=== PATIENT | male | born 1955 | race Caucasian/White ===

== ENCOUNTER → 2020-09-05 | Outpatient (CLI) | payer OTHER ==
[2020-09-05 18:24] LABS: CALCIUM LEVEL 8.7 MG/DL (8.8-10.2); CREATININE FOR GFR 1.32 MG/DL (0.70-1.30); GLOMERULAR FILTRATION RATE 58.3 (>49); TROPONIN I 0.09 NG/ML (< 0.10)
== END ==
LOC: M PLALAB 15:49
PROVIDERS: ATTEND Physician Assistant
DX: I50.32 Chronic diastolic (congestive) heart failure (principal); R07.9 Chest pain, unspecified

== ENCOUNTER 2021-01-21 13:56 | Emergency (ER) | payer OTHER ==
[~2021-01-21] VITALS: Ht 165.1 cm; Wt 82.2 kg
[2021-01-21] MEDS ORDERED: TORS10TA3 (14:01)
[2021-01-21] MEDS ORDERED: WARF4TAB51 (14:01)
[2021-01-21 14:11] VITALS: BP 136/82
[2021-01-21 14:40] LABS: BASO # 0.1 10^3/uL (0.0-0.2); BASO % 0.6 % (0.0-1.0); EOS # 0.3 10^3/uL (0.0-0.5); HEMATOCRIT 53.3 % (42.0-52.0); HEMOGLOBIN 17.4 g/dl (13.5-17.5); LYMPH # 1.3 10^3/uL (1.5-5.0); LYMPH % 13.4 % (24.0-44.0); MEAN CORPUSCULAR HEMOGLOBIN 28.2 pg (27.0-33.0); MEAN CORPUSCULAR HGB CONC 32.6 g/dl (32.0-36.5); MEAN CORPUSCULAR VOLUME 86.2 fl (80.0-96.0); MONO # 0.9 10^3/uL (0.0-0.8); MONO % 9.7 % (2.0-8.0); NEUTROPHILS % 72.9 % (36.0-66.0); PLATELET COUNT, AUTOMATED 165 10^3/uL (150-450); RED BLOOD COUNT 6.18 10^6/uL (4.30-6.10); WHITE BLOOD COUNT 9.7 10^3/uL (4.0-10.0)
[2021-01-21 14:59] LABS: BLOOD UREA NITROGEN 26 MG/DL (7-18); CALCIUM LEVEL 8.7 MG/DL (8.8-10.2); CARBON DIOXIDE LEVEL 29 MEQ/L (21-32); CHLORIDE LEVEL 104 MEQ/L (98-107); CK-MB VALUE MASS 3.4 NG/ML (<3.6); CPK CREATINE PHOSPHOKINASE 301 U/L (39-308); CREATININE FOR GFR 1.23 MG/DL (0.70-1.30); GLOMERULAR FILTRATION RATE > 60.0 (>49); GLUCOSE, FASTING 90 MG/DL (70-100); MB/CK RELATIVE INDEX 1.13 (< OR =4); SODIUM LEVEL 138 MEQ/L (136-145); TROPONIN I 0.02 NG/ML (< 0.10)
--- NOTE | 2021-01-21 15:12 | REP ---
INDICATION: sob. COMPARISON: None. TECHNIQUE: Single portable AP view of the chest was performed. FINDINGS: Cardiac silhouette is mildly prominent. The pulmonary vasculature appears increased. Increased interstitial markings diffusely bilaterally may represent interstitial edema. No consolidation is seen. Multiple mediastinal clips are present. There is mildly prominent right hilar shadow. I cannot exclude mild right hilar adenopathy. IMPRESSION: Mildly prominent cardiac silhouette and pulmonary vasculature. Increased interstitial markings diffusely bilaterally may represent interstitial edema. Mild right hilar adenopathy is not excluded. <Electronically signed by Gregorio Lyle > 01/21/21 [id number]
[2021-01-21 15:21] LABS: ERYTHROCYTE SEDIMENTATION RATE 1 mm/hr (0-20)
[2021-01-21 15:37] LABS: INR 1.87; PROTHROMBIN TIME 21.9 SECONDS (12.5-14.3)
[2021-01-21 15:38] LABS: PARTIAL THROMBOPLASTIN TIME 42.9 SECONDS (24.2-38.5)
[2021-01-21 15:48] LABS: ALBUMIN 3.7 GM/DL (3.2-5.2); BILIRUBIN,DIRECT 0.1 MG/DL (0.0-0.2); BILIRUBIN,TOTAL 0.5 MG/DL (0.2-1.0); C REACTIVE PROTEIN QUANTITATIV 1.14 MG/DL (0.00-0.30); TOTAL PROTEIN 7.8 GM/DL (6.4-8.2)
[2021-01-21] MEDS ORDERED: NEUR100C PO (18:44)
--- NOTE | 2021-01-23 05:51 | ECGEPIP ---
[facility] - ED Test Date: 2021-01-21 Pat Name: NUBIA FAIR Department: Room: - Gender: Male [employer] Operator: MARGARET : 1955 Requested By: MATT Centeno Order Number: [id number] Reading MD: David Tesfaye Measurements Intervals [place] Rate: 71 P: 43 MN: 172 QRS: -59 QRSD: 164 T: 39 QT: 462 QTc: 502 Interpretive Statements Sinus rhythm with premature atrial complexes with aberrant conduction Possible Left atrial enlargement Right bundle branch block Left anterior fascicular block Bifascicular block Minimal voltage criteria for LVH, may be normal variant ( R in aVL ) NO PRIORS FOR COMPARISON Electronically Signed on 01-23-2021 5:51:28 EDT by David eTsfaye
--- NOTE | 2021-01-23 14:36 | ECHO ---
ECHOCARDIOGRAM DATE OF PROCEDURE: 01/21/2021 Age: 65 Gender: Height: Weight: REFERRING PROVIDER: ____. REASON FOR THE TESTING: Chest pain. 2D MEASUREMENTS: IVS 1,2 cm LV 5.2 cm LVPW 1.2 cm LA 5.31 cm Ascending aorta 5.1 cm IVC 1.6 cm DOPPLER MEASUREMENT Peak velocity across the aortic valve 3.4 m/s Peak velocity across the LVOT 0.4 m/s Peak gradient across the aortic valve 48 mmHg Mean gradient across the aortic valve 31 mmHg Mitral E 0.58 Mitral A 0.90 with a ratio of 0.6 Maximum tricuspid valve velocity 2.6 m/s 2D COMMENTS: 1. Normal left ventricular size, wall thickness, (01:06) depressed global left ventricular systolic function. The estimated left ventricular systolic function is 35 to 40%. 2. Mildly dilated left atrium. The right atrium was (01:31). The right ventricle was not well visualized. (01:41) appeared to be normal without evidence of defect or shunt. (01:52 to 02:19) sound issues). 3. Mildly calcified mitral annulus with (02:21 to 03:13 sound issues). 4. Moderate left ventricular dysfunction with diffuse hypokinesis. There were features of left ventricular diastolic dysfunction manifested by abnormal relaxation. 5. Bioprosthetic valve (03:32 to 03:58 sound issues). 6. Mildly enlarged left atrium. (04:05 04:08 sound issues) noted in the lateral wall of the left atrium that measured 2.3 x 2.5 cm from anterior (04:17).
--- NOTE | 2021-01-24 14:08 | ED PDOC ---
Post-Departure Follow-Up radiology report faxed to Lev Wu Sarah MD Jan 24, 2021 14:08
== END 2021-01-21 19:01 | disposition left against medical advice (07) ==
LOC: M ED 13:56
DX: R07.9 Chest pain, unspecified (principal); I48.91 Unspecified atrial fibrillation; I50.9 Heart failure, unspecified; Z79.01 Long term (current) use of anticoagulants

== ENCOUNTER → 2023-01-01 | Outpatient (REF) | payer MEDICARE, OTHER ==
[~2023-01-01] MED LIST: NEUR100C PO; TORS10TA3; WARF4TAB51
[2023-01-01 13:45] LABS: APPEARANCE, URINE CLEAR (CLEAR); BACTERIA, URINE AUTO NEGATIVE (NEGATIVE); BILIRUBIN, URINE AUTO NEGATIVE (NEGATIVE); BLOOD, URINE BLOOD NEGATIVE (NEGATIVE); COLOR, URINE STRAW (YELLOW); GLUCOSE, URINE (UA) AUTO NEGATIVE (NEGATIVE); KETONE, URINE AUTO NEGATIVE (NEGATIVE); LEUKOCYTE ESTERASE, URINE AUTO NEGATIVE (NEGATIVE); MUCUS, URINE SMALL (NEGATIVE); NITRITE, URINE AUTO NEGATIVE (NEGATIVE); PROTEIN, URINE AUTO NEGATIVE (NEGATIVE); RBC, URINE AUTO 0 /HPF (0-3); SPECIFIC GRAVITY URINE AUTO 1.011 (1.002-1.035); SQUAMOUS EPITHELIAL CELL UR AU 0 /HPF (0-6); UROBILINOGEN, URINE AUTO 0.2 mg/dL (0.0-2.0); WBC, URINE AUTO 0 /HPF (0-3)
== END ==
LOC: M SMT 13:15
PROVIDERS: ATTEND Urology
DX: R39.9 Unspecified symptoms and signs involving the genitourinary system (principal)